=== PATIENT | female | born 1990 | race Caucasian/White ===

== ENCOUNTER 2017-08-28 20:01 | Emergency (ER) | payer OTHER ==
[~2017-08-28] VITALS: Ht 165.1 cm; Wt 83.5 kg
[~2017-08-28 20:01] MED LIST: BUSP15 PO; Bactrim Ds Tab1 EACH PO; CEPH500 PO; CLON.5 PO; CYCL10 PO; Flomax0.4 MG PO; Mobic15 MG PO; NAPR500 PO; Naprosyn500 MG PO; PRAZ1 PO; Pyridium100 MG PO; TRAZ50 PO; Zofran Odt4 MG PO
[2017-08-28] MEDS ORDERED: FLUO10 PO (20:16)
[2017-12-05] MEDS ORDERED: PENVK500 PO (17:54)
== END 2017-08-28 21:21 | disposition home or self-care (01) ==
LOC: ER 20:01
DX: S61.012A Laceration without foreign body of left thumb without damage to nail, initial encounter (principal); Z23 Encounter for immunization; Z88.8 Allergy status to other drugs, medicaments and biological substances; Z88.5 Allergy status to narcotic agent; Z79.899 Other long term (current) drug therapy; Z87.442 Personal history of urinary calculi; W25.XXXA Contact with sharp glass, initial encounter
CPT/HCPCS: 12001; 90471; 90714; 99283

== ENCOUNTER 2017-10-16 18:29 | Emergency (ER) | payer OTHER ==
[~2017-10-16] VITALS: Ht 165.1 cm; Wt 86.2 kg
[~2017-10-16 18:29] MED LIST changes: +FLUO10 PO
[2017-10-16] MEDS ORDERED: PRAZ2 PO (19:40)
[2017-10-16] MEDS ORDERED: PENVK500 PO (20:02)
[2017-12-05] MEDS ORDERED: PENVK500 PO (17:54)
== END 2017-10-16 20:10 | disposition home or self-care (01) ==
LOC: ER 18:29
DX: K04.7 Periapical abscess without sinus (principal); K02.9 Dental caries, unspecified; F41.9 Anxiety disorder, unspecified; Z87.891 Personal history of nicotine dependence; Z88.5 Allergy status to narcotic agent; Z88.8 Allergy status to other drugs, medicaments and biological substances; Z79.899 Other long term (current) drug therapy
CPT/HCPCS: 99283

== ENCOUNTER 2017-11-24 18:23 | Emergency (ER) | payer OTHER ==
[~2017-11-24] VITALS: Ht 165.1 cm; Wt 90.7 kg
[~2017-11-24 18:23] MED LIST changes: +PENVK500 PO; +PRAZ2 PO
[2017-11-24] MEDS ORDERED: Flovent 44 mc10.6 GM INH (19:25)
[2017-11-24] MEDS ORDERED: Cheratussin AC118 ML PO (19:25)
== END 2017-11-24 19:45 | disposition home or self-care (01) ==
LOC: ER 18:23
DX: J40 Bronchitis, not specified as acute or chronic (principal); Z88.5 Allergy status to narcotic agent; Z88.8 Allergy status to other drugs, medicaments and biological substances; Z79.899 Other long term (current) drug therapy; Z79.2 Long term (current) use of antibiotics; F17.200 Nicotine dependence, unspecified, uncomplicated
CPT/HCPCS: 94640; 99283

== ENCOUNTER 2018-03-21 12:35 | Emergency (ER) | payer OTHER ==
[~2018-03-21] VITALS: Ht 165.1 cm; Wt 87.1 kg
[~2018-03-21 12:35] MED LIST changes: +Cheratussin AC118 ML PO; +Flovent 44 mc10.6 GM INH
[2018-03-21] MEDS ORDERED: KETO10 PO (13:01)
[2018-03-21] MEDS ORDERED: Cyclobenzaprine5 MG PO (13:02)
== END 2018-03-21 13:15 | disposition home or self-care (01) ==
LOC: ER 12:35
DX: S46.012A Strain of muscle(s) and tendon(s) of the rotator cuff of left shoulder, initial encounter (principal); F17.200 Nicotine dependence, unspecified, uncomplicated; Z88.8 Allergy status to other drugs, medicaments and biological substances; Z88.5 Allergy status to narcotic agent; Z79.899 Other long term (current) drug therapy; X50.3XXA Overexertion from repetitive movements, initial encounter; Y93.74 Activity, frisbee
CPT/HCPCS: 96372; 99283; J1885

== ENCOUNTER 2018-08-21 18:35 | Emergency (ER) | payer OTHER ==
[~2018-08-21] VITALS: Ht 165.1 cm; Wt 96.6 kg
[~2018-08-21 18:35] MED LIST changes: +Cyclobenzaprine5 MG PO; +KETO10 PO
[2018-08-21] MEDS ORDERED: CRUTCH4 XX (21:00)
== END 2018-08-21 21:11 | disposition home or self-care (01) ==
LOC: ER 18:35
DX: S93.402A Sprain of unspecified ligament of left ankle, initial encounter (principal); X50.9XXA Other and unspecified overexertion or strenuous movements or postures, initial encounter; Z88.5 Allergy status to narcotic agent; Z88.8 Allergy status to other drugs, medicaments and biological substances; Z79.899 Other long term (current) drug therapy; F17.200 Nicotine dependence, unspecified, uncomplicated
CPT/HCPCS: 73610; 99283-25

== ENCOUNTER 2018-11-03 17:32 | Emergency (ER) | payer OTHER ==
[~2018-11-03] VITALS: Ht 167.6 cm; Wt 97.5 kg
[~2018-11-03 17:32] MED LIST changes: +CRUTCH4 XX
[2018-11-03] MEDS ORDERED: IBUP800 PO (19:58)
== END 2018-11-03 20:30 | disposition home or self-care (01) ==
LOC: ER 17:32
DX: S00.83XA Contusion of other part of head, initial encounter (principal); F17.200 Nicotine dependence, unspecified, uncomplicated; W18.30XA Fall on same level, unspecified, initial encounter
CPT/HCPCS: 70450

== ENCOUNTER → 2018-11-21 | Outpatient (CLI) | payer OTHER ==
[~2018-11-21] MED LIST changes: +IBUP800 PO
[2018-11-21 14:06] LABS: BASOPHILS ABSOLUTE AUTO 0.02 K/mm3 (0.00-0.23); BASOPHILS PERCENT AUTO 0 % (0-2); EOSINOPHILS ABSOLUTE AUTO 0.13 K/mm3 (0.00-0.68); EOSINOPHILS PERCENT AUTO 2 % (0-6); Hematocrit 37.5 % (33.0-51.0); Hemoglobin 12.9 g/dL (11.5-16.0); IMMATURE GRAN ABSOLUTE AUTO 0.03 K/mm3 (0.00-0.10); IMMATURE GRAN PERCENT AUTO 0 % (0-1); LYMPHOCYTES ABSOLUTE AUTO 1.65 K/mm3 (0.84-5.20); LYMPHOCYTES PERCENT AUTO 25 % (21-46); MONOCYTES ABSOLUTE AUTO 0.39 K/mm3 (0.16-1.47); MONOCYTES PERCENT AUTO 6 % (4-13); Mean Corpuscular HGB 33.1 pg (26.0-34.0); Mean Corpuscular HGB Conc 34.4 g/dL (31.5-36.5); Mean Corpuscular Volume 96 fL (80-100); Mean Platelet Volume 9.4 fL (9.1-12.4); NEUTROPHILS ABSOLUTE AUTO 4.51 K/mm3 (1.96-9.15); NEUTROPHILS PERCENT AUTO 67 % (41-73); Platelet Count 198 K/mm3 (150-400); RDW Coefficient Variation 12.7 % (11.7-14.2); RDW Standard Deviation 44.9 fL (35.1-46.3); White Blood Cell Count 6.73 K/mm3 (4.00-11.30)
[2018-11-21 14:20] LABS: Alanine Aminotransfer (ALT/SGP 19 U/L (12-78); Albumin, Blood 3.6 g/dL (3.4-5.0); Albumin/Globulin Ratio 1.1 (0.8-1.8); Alk Phos 81 U/L (40-126); Anion Gap 9 mmol/L (6-16); Aspartate Aminotrans (AST/SGOT 12 U/L (12-37); Bilirubin, Total 0.4 mg/dL (0.1-1.0); Blood Urea Nitrogen 7 mg/dL (8-24); Bun/Creatinine Ratio 11.7 (12.0-20.0); CO2, Blood 26 mmol/L (21-32); Chloride, Blood 104 mmol/L (98-108); Globulin, Blood 3.4 g/dL (2.2-4.0); Glomerular Filtration Rate >60 (60-); Glucose, Blood 98 mg/dL (70-99); Potassium, Blood 3.8 mmol/L (3.5-5.5); Sodium, Blood 139 mmol/L (136-145)
== END | disposition home or self-care (01) ==
LOC: LAB EV 13:40 → LAB SHORT 13:40
PROVIDERS: Physician Assistant Medical
DX: N92.1 Excessive and frequent menstruation with irregular cycle (principal); R10.30 Lower abdominal pain, unspecified
CPT/HCPCS: 80053; 83690; 85025; 87070; 87205

== ENCOUNTER 2019-04-08 15:45 | Emergency (ER) | payer OTHER ==
[~2019-04-08] VITALS: Ht 167.6 cm; Wt 91.2 kg
[2019-04-08] MEDS ORDERED: TOPI50 PO (20:02)
[2019-04-08] MEDS ORDERED: QUET100 PO (20:03)
[2019-04-08] MEDS ORDERED: IBUP600 PO (20:50)
[2019-04-08 21:51] LABS: Source, Urine Clean Catch
[2019-04-08] MEDS ORDERED: CEPH500 PO (21:52)
[2019-04-08 21:55] LABS: Bilirubin, Urine Neg (Neg); Blood, Urine Neg (Neg); Glucose Qualitative, Urine Neg (Neg); Ketones, Urine Neg (Neg); Leukocyte Esterase, Urine Neg (Neg); Nitrite, Urine Neg (Neg); Protein, Urine Neg (Neg); Urobilinogen, Urine NORM (Normal)
[2019-04-08 21:56] LABS: Appearance, Urine Clear (Clear); Color, Urine Yellow (P-Yellow)
== END 2019-04-08 22:14 | disposition home or self-care (01) ==
LOC: ER 15:45
PROVIDERS: Emergency Medicine
DX: R07.89 Other chest pain (principal); Z87.442 Personal history of urinary calculi; Z87.440 Personal history of urinary (tract) infections; F17.200 Nicotine dependence, unspecified, uncomplicated; Z88.8 Allergy status to other drugs, medicaments and biological substances; Z79.899 Other long term (current) drug therapy
CPT/HCPCS: 36415; 71045; 81003; 93005; 93010; 96374; 99285-25; J1885

== ENCOUNTER 2021-01-08 08:48 | Emergency (ER) | payer OTHER ==
[~2021-01-08] VITALS: Ht 165.1 cm; Wt 72.6 kg
[~2021-01-08 08:48] MED LIST changes: +IBUP600 PO; +QUET100 PO; +TOPI50 PO
[2021-01-08 11:20] LABS: Source, Urine Voided
[2021-01-08 11:32] LABS: Bilirubin, Urine Neg (Neg); Blood, Urine 2+ (Neg); Glucose Qualitative, Urine Neg (Neg); Ketones, Urine Neg (Neg); Leukocyte Esterase, Urine 3+ (Neg); Nitrite, Urine Neg (Neg); Protein, Urine 2+ (Neg); Urobilinogen, Urine 1+ (Normal)
[2021-01-08 11:51] LABS: Appearance, Urine Hazy (Clear); Color, Urine Yellow (P-Yellow)
[2021-01-08 11:52] LABS: White Blood Cells, Urine 50-100 /hpf (0-5)
[2021-01-08 11:53] LABS: Bacteria Many /hpf; Squamous Epithelial Cells Mod /hpf (Few)
[2021-01-08] MEDS ORDERED: CEPH500 PO (12:18)
[2021-01-08] MEDS ORDERED: IBUP600 PO (12:18)
== END 2021-01-08 13:05 | disposition home or self-care (01) ==
LOC: ER 08:48
PROVIDERS: Emergency Medicine
DX: N12 Tubulo-interstitial nephritis, not specified as acute or chronic (principal); Z88.8 Allergy status to other drugs, medicaments and biological substances; Z79.899 Other long term (current) drug therapy
CPT/HCPCS: 36415; 71045; 81001; 81025; 87077; 87086; 87186; 93005; 93010; 96365; 96375; 99284-25; A9270; J0696; J1885; J2405; J7030

== ENCOUNTER → 2021-04-09 | Outpatient (CLI) | payer OTHER | END | disposition home or self-care (01) | LOC: LAB SHORT 14:31 → LAB 14:31 | DX: R31.9 Hematuria, unspecified (principal) | CPT/HCPCS: 87077; 87086; 87186 ==

== ENCOUNTER → 2021-05-08 | Outpatient (CLI) | payer OTHER | END | disposition home or self-care (01) | LOC: LAB 10:36 → LAB SHORT 10:36 | DX: N12 Tubulo-interstitial nephritis, not specified as acute or chronic (principal) | CPT/HCPCS: 87077; 87086; 87186 ==

== ENCOUNTER 2021-06-05 09:22 | Emergency (ER) | payer OTHER ==
[~2021-06-05] VITALS: Ht 165.1 cm; Wt 70.3 kg
[2021-06-05] MEDS ORDERED: Norco 5-325 Ta1 EACH PO (12:17)
== END 2021-06-05 12:38 | disposition home or self-care (01) ==
LOC: ER 09:22
DX: S30.1XXA Contusion of abdominal wall, initial encounter (principal); V19.9XXA Pedal cyclist (driver) (passenger) injured in unspecified traffic accident, initial encounter; Z88.8 Allergy status to other drugs, medicaments and biological substances; F17.200 Nicotine dependence, unspecified, uncomplicated
CPT/HCPCS: 74176; 99284-25; A9270

== ENCOUNTER 2021-09-26 13:43 | Emergency (ER) | payer OTHER ==
[~2021-09-26] VITALS: Ht 165.1 cm; Wt 77.1 kg
[~2021-09-26 13:43] MED LIST changes: +Norco 5-325 Ta1 EACH PO
[2021-09-26] MEDS ORDERED: NARCAN4 M1 (14:45)
== END 2021-09-26 15:03 | disposition home or self-care (01) ==
LOC: ER 13:43
DX: T40.2X1A Poisoning by other opioids, accidental (unintentional), initial encounter (principal); F17.210 Nicotine dependence, cigarettes, uncomplicated
CPT/HCPCS: 99284

== ENCOUNTER → 2021-11-01 | Outpatient (CLI) | payer OTHER ==
[~2021-11-01] MED LIST changes: +NARCAN4 M1
== END | disposition home or self-care (01) ==
LOC: LAB 16:22 → LAB SHORT 16:22
DX: R82.90 Unspecified abnormal findings in urine (principal)
CPT/HCPCS: 87077; 87086; 87186

== ENCOUNTER 2022-05-12 21:21 | Emergency (ER) | payer OTHER ==
[~2022-05-12] VITALS: Ht 165.1 cm; Wt 74.8 kg
[2022-05-12 22:51] LABS: BASOPHILS ABSOLUTE AUTO 0.02 K/mm3 (0.00-0.23); BASOPHILS PERCENT AUTO 0 % (0-2); EOSINOPHILS ABSOLUTE AUTO 0.39 K/mm3 (0.00-0.68); EOSINOPHILS PERCENT AUTO 4 % (0-6); IMMATURE GRAN ABSOLUTE AUTO 0.04 K/mm3 (0.00-0.10); IMMATURE GRAN PERCENT AUTO 0 % (0-1); LYMPHOCYTES PERCENT AUTO 10 % (21-46); MONOCYTES ABSOLUTE AUTO 1.06 K/mm3 (0.16-1.47); MONOCYTES PERCENT AUTO 9 % (4-13); Mean Corpuscular HGB 32.3 pg (26.0-34.0); Mean Corpuscular HGB Conc 34.3 g/dL (31.5-36.5); Mean Corpuscular Volume 94 fL (80-100); Mean Platelet Volume 9.6 fL (9.1-12.4); NEUTROPHILS ABSOLUTE AUTO 8.69 K/mm3 (1.96-9.15); NEUTROPHILS PERCENT AUTO 77 % (41-73); Platelet Count 205 K/mm3 (150-400); RDW Coefficient Variation 13.4 % (11.7-14.2); RDW Standard Deviation 46.6 fL (35.1-46.3); Red Blood Cell Count 3.71 M/mm3 (3.80-5.20)
[2022-05-12 23:09] LABS: Albumin/Globulin Ratio 0.9 (0.8-1.8); Bilirubin, Total 0.6 mg/dL (0.1-1.0); Bun/Creatinine Ratio 10.9 (12.0-20.0); Calcium, Blood 8.6 mg/dL (8.5-10.1); Creatinine, Blood 0.64 mg/dL (0.40-1.00); Globulin, Blood 3.5 g/dL (2.2-4.0); Potassium, Blood 3.9 mmol/L (3.5-5.5); Total Protein, Blood 6.5 g/dL (6.4-8.2)
[2022-05-13] MEDS ORDERED: SULTRIDS PO (01:23)
== END 2022-05-13 01:37 | disposition home or self-care (01) ==
LOC: ER 21:21
PROVIDERS: Emergency Medicine
DX: L02.416 Cutaneous abscess of left lower limb (principal); L03.115 Cellulitis of right lower limb; F17.210 Nicotine dependence, cigarettes, uncomplicated; Z88.8 Allergy status to other drugs, medicaments and biological substances
CPT/HCPCS: 36415; 80053; 83605; 85025; 99283; A9270

== ENCOUNTER → 2022-06-30 | Outpatient (CLI) | payer OTHER ==
[~2022-06-30] MED LIST changes: +SULTRIDS PO
== END | disposition home or self-care (01) ==
LOC: LAB SHORT 17:58
DX: N39.0 Urinary tract infection, site not specified (principal)
CPT/HCPCS: 87077; 87086; 87186

== ENCOUNTER 2024-06-22 23:39 | Emergency (ER) | payer OTHER ==
[~2024-06-22] VITALS: Ht 165.1 cm; Wt 77.1 kg
[2024-06-22 23:57] VITALS: BP 124/98
[2024-06-23] MEDS ORDERED: DOXY100 PO (00:10)
[2024-06-23] MEDS ORDERED: Doxycycline Hyclate 100 MG TAB PO ONE (00:10)
[2024-06-23] MEDS ORDERED: Benzonatate 100 MG Cap PO ONE (00:10)
[2024-06-23] MEDS ORDERED: AMOCLA875 PO ×2 (00:10→00:23)
[2024-06-23] MEDS ORDERED: BENZ100A PO ×2 (00:10→00:23)
== END 2024-06-23 00:20 | disposition home or self-care (01) ==
LOC: ER 23:39
DX: H66.92 Otitis media, unspecified, left ear (principal); R05.9 Cough, unspecified; F17.210 Nicotine dependence, cigarettes, uncomplicated
CPT/HCPCS: 99282; A9270

== ENCOUNTER 2024-12-21 20:04 | Emergency (ER) | payer OTHER ==
[~2024-12-21] VITALS: Ht 167.6 cm; Wt 81.7 kg
[~2024-12-21 20:04] MED LIST changes: +AMOCLA875 PO; +BENZ100A PO; +DOXY100 PO
[2024-12-21 20:13] VITALS: BP 149/90
[2024-12-21 21:31] LABS: Albumin, Blood 4.1 g/dL (3.4-5.0); Albumin/Globulin Ratio 1.1 (0.8-1.8); Bilirubin, Total 0.4 mg/dL (0.1-1.0); Bun/Creatinine Ratio 16.3 (12.0-20.0); Calcium, Blood 9.3 mg/dL (8.5-10.1); Creatinine, Blood 0.92 mg/dL (0.40-1.00); Globulin, Blood 3.7 g/dL (2.2-4.0); Potassium, Blood 3.5 mmol/L (3.5-5.5); Total Protein, Blood 7.8 g/dL (6.4-8.2)
[2024-12-24 08:49] LABS: QUANTIFERON MITOGEN MINUS NIL 9.95 IU/mL; QUANTIFERON NIL 0.05 IU/mL; QUANTIFERON PLUS TB1 MINUS NIL 0.03 IU/mL (<=0.34); QUANTIFERON PLUS TB2 MINUS NIL 0.05 IU/mL (<=0.34)
[2024-12-24 14:37] LABS: HEPATITIS C AB CIA INTERP High Pos (Negative); HEPATITIS C ANTIBODY CIA INDEX >11.00 IV
[2024-12-24 18:09] LABS: HIV 1,2 COMBO ANTIGEN/ANTIBODY Negative (Negative)
[2024-12-26 22:30] LABS: HCV QNT BY NAAT (IU/ML) Not Detected; HCV QNT BY NAAT (LOG IU/ML) Not Detected; HCV QNT BY NAAT INTERP Not Detected (Not Detected)
== END 2024-12-21 20:52 | disposition home or self-care (01) ==
LOC: ER 20:04
PROVIDERS: Physician Assistant
DX: Z02.79 Encounter for issue of other medical certificate (principal); F11.90 Opioid use, unspecified, uncomplicated; F17.210 Nicotine dependence, cigarettes, uncomplicated; Z88.8 Allergy status to other drugs, medicaments and biological substances
CPT/HCPCS: 36415; 80053; 86480; 86592; 86803; 87389; 87522; 93005; 93010; 99283-25

== ENCOUNTER 2025-01-28 17:34 | Emergency (ER) | payer OTHER ==
[~2025-01-28] VITALS: Ht 165.1 cm; Wt 74.8 kg
[2025-01-28 17:55] VITALS: BP 120/74
[2025-01-28] MEDS ORDERED: ACET500 PO (20:03)
[2025-01-28] MEDS ORDERED: IBUP600 PO (20:04)
== END 2025-01-28 20:10 | disposition home or self-care (01) ==
LOC: ER 17:34
DX: I82.811 Embolism and thrombosis of superficial veins of right lower extremity (principal); M71.21 Synovial cyst of popliteal space [Baker], right knee; F17.210 Nicotine dependence, cigarettes, uncomplicated
CPT/HCPCS: 73590; 93971; 99284-25; A9270

== ENCOUNTER 2025-04-17 19:44 | Emergency (ER) | payer OTHER ==
[~2025-04-17] VITALS: Ht 167.6 cm; Wt 70.3 kg
[~2025-04-17 19:44] MED LIST changes: +ACET500 PO; +CEFP200 PO
[2025-04-17 19:57] VITALS: BP 116/71
== END 2025-04-17 21:05 | disposition home or self-care (01) ==
LOC: ER 19:44
DX: S30.1XXA Contusion of abdominal wall, initial encounter (principal); F17.210 Nicotine dependence, cigarettes, uncomplicated; Z88.8 Allergy status to other drugs, medicaments and biological substances; Z91.040 Latex allergy status; Z88.5 Allergy status to narcotic agent; X58.XXXA Exposure to other specified factors, initial encounter
CPT/HCPCS: 76857; 99284-25; A9270

== ENCOUNTER 2025-04-24 19:21 | Emergency (ER) | payer OTHER ==
[~2025-04-24] VITALS: Ht 167.6 cm; Wt 69.0 kg
[2025-04-24 19:39] VITALS: BP 126/71
== END 2025-04-24 20:21 | disposition home or self-care (01) ==
LOC: ER 19:21
DX: F11.90 Opioid use, unspecified, uncomplicated (principal); Z76.0 Encounter for issue of repeat prescription; Z88.8 Allergy status to other drugs, medicaments and biological substances; Z91.040 Latex allergy status; F17.210 Nicotine dependence, cigarettes, uncomplicated
CPT/HCPCS: 99281

== ENCOUNTER 2025-05-14 17:33 | Emergency (ER) | payer OTHER ==
[~2025-05-14] VITALS: Ht 167.6 cm; Wt 69.0 kg
[2025-05-14 18:01] VITALS: BP 103/88
== END 2025-05-14 19:42 | disposition left against medical advice (07) ==
LOC: ER 17:33
DX: Z76.89 Persons encountering health services in other specified circumstances (principal); Z53.21 Procedure and treatment not carried out due to patient leaving prior to being seen by health care provider
CPT/HCPCS: 93005; 93010